=== PATIENT | female | born 1965 | race Caucasian/White ===

== ENCOUNTER 2022-08-09 15:25 | Outpatient (CLI) | payer BC, OTHER | END 2022-08-09 15:26 | disposition home or self-care (01) | LOC: BICMAMMO 15:25 | PROVIDERS: ATTEND Family Medicine | DX: Z12.31 Encounter for screening mammogram for malignant neoplasm of breast (principal); Z80.3 Family history of malignant neoplasm of breast | CPT/HCPCS: 77063; 77067 ==

== ENCOUNTER 2025-09-06 07:21 | Outpatient (CLI) | payer BC | END 2025-09-06 07:22 | disposition home or self-care (01) | LOC: ULT 07:21 | PROVIDERS: ATTEND Family Medicine | DX: R74.01 Elevation of levels of liver transaminase levels (principal); K80.20 Calculus of gallbladder without cholecystitis without obstruction | CPT/HCPCS: 76705 ==